=== PATIENT | male | born 1970 | race Caucasian/White ===

== ENCOUNTER → 2017-08-14 | Outpatient (CLI) | payer BC ==
--- NOTE | 2017-08-14 11:15 | CT ---
EXAM DESCRIPTION: Abdomen/Pelvis w/Contrast CLINICAL HISTORY: 47 years,Male,DIVERTICULOSIS COMPARISON: None TECHNIQUE: Multiple axial tomographic images were obtained of the abdomen and pelvis with IV contrast no oral contrast. Then reconstructed in sagittal and coronal planes. This exam was performed using radiation doses that are As Low As Reasonably Achievable (ALARA). FINDINGS: The kidneys are unremarkable The adrenal glands are unremarkable . The spleen is unremarkable. The liver is unremarkable. The pancreas is unremarkable. The gallbladder is unremarkable. The included bowel definite a few diverticuli the sigmoid colon. There is a large air pocket which is adjacent to the sigmoid colon more proximal measuring 3.2 cm in diameter with stranding about it. And appears to have a connection with the lumen of the large bowel. No free air or free fluid or abscesses. The appendix is unremarkable. Scattered surgical clips in right lower quadrant There is no free air, free fluid, masses, or significant adenopathy. Surrounding soft tissues and bony elements unremarkable. Lung bases are unremarkable. IMPRESSION: There is a large contain air pocket continuous with the sigmoid colon which most likely is an enclosed area of diverticulitis. Electronically signed by: Ilan Barragan MD 08/14/2017 11:14 AM CDT
== END | disposition home or self-care (01) ==
LOC: CT 10:14
PROVIDERS: ATTEND General Practice
DX: K57.30 Diverticulosis of large intestine without perforation or abscess without bleeding (principal)